=== PATIENT | female | born 1975 | race Two or more races ===

== ENCOUNTER 2017-11-19 09:42 | Outpatient (CLI) | payer OTHER ==
[~2017-11-19 09:42] MED LIST: CLARITIN10 MG PO; FLONASE16 GM NS; KEFLEX500 MG PO; PEPCID20 MG PO; ZOFRAN4 MG SL
== END 2017-11-19 09:52 | disposition home or self-care (01) ==
LOC: LAB 09:42
DX: E55.9 Vitamin D deficiency, unspecified (principal); M85.9 Disorder of bone density and structure, unspecified; E21.3 Hyperparathyroidism, unspecified; M81.8 Other osteoporosis without current pathological fracture; E56.1 Deficiency of vitamin K; E88.89 Other specified metabolic disorders; E83.42 Hypomagnesemia

== ENCOUNTER 2018-03-15 15:46 | Outpatient (CLI) | payer OTHER | END 2018-03-15 15:54 | disposition home or self-care (01) | LOC: RAD 15:46 | DX: M54.6 Pain in thoracic spine (principal); M81.8 Other osteoporosis without current pathological fracture ==